=== PATIENT | female | born 1995 | race African-American/Black ===

== ENCOUNTER 2018-01-24 11:53 | Emergency (ER) | payer OTHER ==
[~2018-01-24] VITALS: Ht 160 cm; Wt 49.0 kg
[~2018-01-24 11:53] MED LIST: ALBU1.25 NEB; ALBU8.5H8 INH; FLUT1DIS3 IH; MONT10TA9 PO; PRED50TA PO
[2018-01-24 12:05] VITALS: BP 100/67
[2018-01-24] MEDS ORDERED: 0.9 % SODIUM CHLORIDE 10 ML DISP.SYRIN. IV PRN (12:15)
--- NOTE | 2018-01-24 12:28 | PHYS DOC ---
Past History Past Medical History: Asthma Past Surgical History: No Surgical History Smoking: Non-smoker Alcohol Use: Rarely Drug Use: None Adult General Chief Complaint Chief Complaint: left flank HPI HPI Patient is a [23] year old [female] who presents with left flank pain. Patient complaining of upper respiratory infection with nasal congestion, muffled voice , mild cough[] for the last 4 days treated with left flank and lower abdominal cramping pain that he continued every 5 minutes and gradually getting worse and did not get better with taking ibuprofen. Patient said the pain radiated from left flank and left lower quadrant and denies fever and chills, nausea and vomiting, urinary symptoms, diarrhea and constipation, history of the same pain , vaginal bleeding or discharge. Patient denies sexual activity was several months and states she had a sharp in September 2017 and her LMP was October 2017. Review of Systems Review of Systems Constitutional: Denies fever or chills [] Eyes: Denies change in visual acuity, redness, or eye pain [] HENT: Denies nasal congestion or sore throat [] Respiratory: Denies cough or shortness of breath [] Cardiovascular: No additional information not addressed in HPI [] GI: Denies abdominal pain, nausea, vomiting, bloody stools or diarrhea [] : Denies dysuria or hematuria [] Musculoskeletal: Denies back pain or joint pain [] Integument: Denies rash or skin lesions [] Neurologic: Denies headache, focal weakness or sensory changes [] Endocrine: Denies polyuria or polydipsia [] All other systems were reviewed and found to be within normal limits, except as documented in this note. Current Medications Current Medications Current Medications Medications (Trade) Dose Ordered Sig/Nolan Start Time Stop Time Status Last Admin Dose Admin Ketorolac Tromethamine (Toradol) 30 mg 1X ONCE 01/24/18 12:30 01/24/18 12:31 UNV Sodium Chloride (Normal Saline Flush) 10 ml QSHIFT PRN 01/24/18 12:15 Allergies Allergies Allergies Coded Allergies Type Severity Reaction Last Updated Verified No Known Drug Allergies 07/05/15 No Physical Exam Physical Exam Constitutional: Well developed, well nourished, no acute distress, non-toxic appearance. [] HENT: Normocephalic, atraumatic, bilateral external ears normal, oropharynx moist, no oral exudates, nose normal. [] Eyes: PERRLA, EOMI, conjunctiva normal, no discharge. [] Neck: Normal range of motion, no tenderness, supple, no stridor. [] Cardiovascular:Heart rate regular rhythm, no murmur [] Lungs & Thorax: Bilateral breath sounds clear to auscultation [] Abdomen: Bowel sounds normal, soft, no tenderness, no masses, no pulsatile masses. [] Skin: Warm, dry, no erythema, no rash. [] Back: No tenderness, no CVA tenderness. [] Extremities: No tenderness, no cyanosis, no clubbing, ROM intact, no edema. [] Neurologic: Alert and oriented X 3, normal motor function, normal sensory function, no focal deficits noted. [] Psychologic: Affect normal, judgement normal, mood normal. [] Current Patient Data Vital Signs Vital Signs Date Time Temp Pulse Resp B/P (MAP) Pulse Ox O2 Delivery O2 Flow Rate FiO2 01/24/18 12:05 98.5 95 18 99 Room Air Lab Results Laboratory Tests Test 01/24/18 11:29 POC Urine HCG, Qualitative hcg negative (Negative) EKG EKG [] Radiology/Procedures Radiology/Procedures [] Course & Med Decision Making Course & Med Decision Making Pertinent Labs reviewed. (See chart for details) discharge: I've spoken with the patient and/or caregivers. I've explained the patient's condition, diagnosis and treatment plan based on information available to me at this time. I've answered the patient's and/or caregivers questions and addressed any concerns. The patient and/or caregivers have a good understanding the patient's diagnosis, condition and treatment plan as can be expected at this point. Vital signs have been stabilized. The patient's condition is stable for discharge from the emergency department. The patient will pursue further outpatient evaluation with her primary care provider or other designated consulting physician as outlined in the discharge instructions. Patient and/or caregivers are agreeable to this plan of care and follow-up instructions have been explained in detail. The patient and/or caregivers have received these instructions in written format and expressed understanding of these discharge instructions. The patient and her caregivers are aware that if any significant change in condition or worsening of symptoms should prompt him to immediately return to this of the closest emergency department. If an emergent department is not readily available I would encourage him to call 911. [] Dragon Disclaimer Dragon Disclaimer This electronic medical record was generated, in whole or in part, using a voice recognition dictation system. Departure Departure: Impression: Primary Impression: UTI (urinary tract infection) Additional Impressions: Left flank pain Upper respiratory infection, viral Disposition: HOME, SELF-CARE (At 1341) Condition: IMPROVED Referrals: MARIA A REYNOLDS DO, [facility] (PCP) Patient Instructions: Flank Pain, Urinary Tract Infection Additional Instructions: Drink plenty of liquids Follow-up with your primary care physician in 3-5 days Return to ER if not getting better Scripts Sulfamethoxazole/Trimethoprim (BACTRIM DS TABLET) 1 Each Tablet 1 TAB PO BID, #6 TAB Prov: PIPPA SHAW MD 01/24/18 Naproxen (NAPROSYN) 500 Mg Tablet 1 TAB PO BID, #14 TAB 1 Refill Prov: PIPPA SHAW MD 01/24/18 Problem Qualifiers PIPPA SHAW MD Jan 24, 2018 12:28
[2018-01-24] MEDS ORDERED: IV NORMAL SALINE 1,000ML 1,000 ML IV SCH (12:30)
[2018-01-24] MEDS ORDERED: KETOROLAC 30 MG/ML VIAL. IV ONE (12:30)
[2018-01-24 12:47] LABS: BARBITURATES NEG (NEG); BENZODIAZEPINES NEG (NEG); CANNABINOIDS NEG (NEG); COCAINE NEG (NEG); METHADONE NEG (NEG); OPIATES NEG (NEG); PHENCYCLIDINE NEG (NEG)
[2018-01-24 12:48] LABS: AMPHETAMINE/METHAMPHETAMINE NEG (NEG)
[2018-01-24 12:51] LABS: BASO # 0.1 x10^3/uL (0.0-0.2); BASO % 1 % (0-3); EOS # 0.7 x10^3/uL (0.0-0.7); EOS % 7 % (0-3); HEMATOCRIT 40.8 % (36.0-47.0); HEMOGLOBIN 13.9 g/dL (12.0-15.5); LYMPH # 2.2 x10^3/uL (1.0-4.8); LYMPH % 24 % (24-48); MEAN CORPUSCULAR HEMOGLOBIN 33 pg (25-35); MEAN CORPUSCULAR HGB CONC 34 g/dL (31-37); MEAN CORPUSCULAR VOLUME 96 fL (79-100); MONO # 0.7 x10^3/uL (0.0-1.1); MONO % 8 % (0-9); NEUT # 5.6 x10^3uL (1.8-7.7); NEUT % 60 % (31-73); PLATELET COUNT 261 x10^3/uL (140-400); RED BLOOD COUNT 4.23 x10^6/uL (3.50-5.40); RED CELL DISTRIBUTION WIDTH 13.9 % (11.5-14.5); WHITE BLOOD COUNT 9.2 x10^3/uL (4.0-11.0)
[2018-01-24 13:07] LABS: ALBUMIN 4.2 g/dL (3.4-5.0); ALBUMIN/GLOBULIN RATIO 1.2 (1.0-1.7); CREATININE 0.9 mg/dL (0.6-1.0); GFR 94.7; POTASSIUM 4.1 mmol/L (3.5-5.1); TOTAL BILIRUBIN 0.5 mg/dL (0.2-1.0); TOTAL PROTEIN 7.6 g/dL (6.4-8.2)
[2018-01-24 13:21] LABS: BACTERIA,URINE MOD /HPF (0-FEW); BILIRUBIN,URINE NEG (NEG); CLARITY,URINE HAZY; COLOR,URINE YELLOW; GLUCOSE,URINE NEG (NEG); NITRITE,URINE NEG (NEG); UROBILINOGEN,URINE 1 mg/dL (0.2 mg/dL)
[2018-01-24 13:22] LABS: SQUAMOUS EPITHELIAL CELL,UR MOD /LPF
[2018-01-24] MEDS ORDERED: NAPR-683 PO (13:43)
[2018-01-24] MEDS ORDERED: SULF1TAB24 PO (13:43)
== END 2018-01-24 13:54 | disposition home or self-care (01) ==
LOC: ER 12:11
DX: N39.0 Urinary tract infection, site not specified (principal); J06.9 Acute upper respiratory infection, unspecified; B97.89 Other viral agents as the cause of diseases classified elsewhere; J45.909 Unspecified asthma, uncomplicated
CPT/HCPCS: 36415; 80053; 80307; 81001; 81025; 83690; 85025; 87086; 96361; 96374; 99284; J1885; G0479; J7030

== ENCOUNTER 2018-04-20 23:02 | Emergency (ER) | payer OTHER ==
[~2018-04-20 23:02] MED LIST changes: +NAPR-683 PO; +SULF1TAB24 PO
--- NOTE | 2018-04-20 23:05 | ED.ADGEN ---
Past History Past Medical History: Asthma, Migraines Past Surgical History: No Surgical History Smoking: Non-smoker Alcohol Use: Rarely Drug Use: None Adult General Chief Complaint Chief Complaint ".. I ve had this headache.. HPI HPI Patient is a 23 year old female who presents with above hx and complaints of headache for past 2 weeks. Pain is localized to forehead. Seems to be related to weather changes. Pt. has had migraines in the past but this one has been more persistent. Patient denies any trauma. 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 No recent travel. Patient up-to-date vaccinations. Follows at [facility]. Review of Systems Review of Systems Constitutional: Denies fever or chills [] Eyes: Denies change in visual acuity, redness, or eye pain [] HENT:,Complaints of nasal congestion Respiratory: Denies cough or shortness of breath [] Cardiovascular: No additional information not addressed in HPI [] GI: Denies abdominal pain, nausea, vomiting, bloody stools or diarrhea [] : Denies dysuria or hematuria [] Musculoskeletal: Denies back pain or joint pain [] Integument: Denies rash or skin lesions [] Neurologic: Complaints of headache. denies focal weakness or sensory changes [] Endocrine: Denies polyuria or polydipsia [] All other systems were reviewed and found to be within normal limits, except as documented in this note. Family History Family History Mother has migraines and hers have been persistent also last 2 weeks Current Medications Current Medications Current Medications Medications (Trade) Dose Ordered Sig/Nolan Start Time Stop Time Status Last Admin Dose Admin Cephalexin HCl (Keflex) 500 mg 1X ONCE 04/21/18 01:00 04/21/18 01:01 DC 04/21/18 01:00 500 MG Diphenhydramine HCl (Benadryl) 50 mg 1X ONCE 04/20/18 23:55 04/20/18 23:56 DC 04/21/18 00:16 50 MG Ketorolac Tromethamine (Toradol 30mg Vial) 30 mg 1X ONCE 04/21/18 01:00 04/21/18 01:01 DC 04/21/18 01:00 30 MG Lactated Ringer's 1,000 ml @ 1,000 mls/hr 1X ONCE 04/20/18 23:15 04/21/18 00:14 DC 04/21/18 00:18 1,000 MLS/HR Ondansetron HCl (Zofran) 8 mg 1X ONCE 04/20/18 23:55 04/20/18 23:56 DC 04/21/18 00:16 8 MG Prednisone (Prednisone) 50 mg 1X ONCE 04/21/18 01:00 04/21/18 01:01 DC 04/21/18 01:00 50 MG Sodium Chloride 50 ml @ As Directed STK-MED ONCE 04/20/18 23:55 04/20/18 23:56 DC Valproic Acid (Depacon) 500 mg STK-MED ONCE 04/20/18 23:56 04/20/18 23:57 DC Valproic Acid 500 mg/Sodium Chloride 55 ml @ 55 mls/hr ONCE ONCE 04/20/18 23:45 04/21/18 00:44 DC 04/21/18 00:15 55 MLS/HR See nursing for home meds Allergies Allergies Allergies Coded Allergies Type Severity Reaction Last Updated Verified No Known Drug Allergies 07/05/15 No Physical Exam Physical Exam Constitutional: Well developed, well nourished, moderately acute distress, non- toxic appearance. [] HENT: Normocephalic, atraumatic, bilateral external ears normal, oropharynx moist, no oral exudates, nose swollen turbinates and rhinorrhea. No temporal lobe tenderness. Eyes: PERRLA, EOMI, conjunctiva normal, no discharge. []No appreciable peripheral field vision loss. Fundus is benign Neck: Normal range of motion, no tenderness, supple, no stridor. [] Cardiovascular:Heart rate regular rhythm, no murmur [] Lungs & Thorax: Bilateral breath sounds clear to auscultation [] Abdomen: Bowel sounds normal, soft, no tenderness, no masses, no pulsatile masses. [] Skin: Warm, dry, no erythema, no rash. [] Back: No tenderness, no CVA tenderness. [] Extremities: No tenderness, no cyanosis, no clubbing, ROM intact, no edema. [] Neurologic: Alert and oriented X 3, normal motor function, normal sensory function, no focal deficits noted. []DTRs +2 patella and brachial. No drift. Reel Stripper equal. Psychologic: Affect anxious, judgement normal, mood normal. [] Current Patient Data Lab Results Laboratory Tests Test 04/20/18 22:39 04/20/18 23:20 POC Urine HCG, Qualitative hcg negative (Negative) White Blood Count 8.3 x10^3/uL (4.0-11.0) Red Blood Count 4.49 x10^6/uL (3.50-5.40) Hemoglobin 14.2 g/dL (12.0-15.5) Hematocrit 41.7 % (36.0-47.0) Mean Corpuscular Volume 93 fL (79-100) Mean Corpuscular Hemoglobin 32 pg (25-35) Mean Corpuscular Hemoglobin Concent 34 g/dL (31-37) Red Cell Distribution Width 12.8 % (11.5-14.5) Platelet Count 320 x10^3/uL (140-400) Neutrophils (%) (Auto) 62 % (31-73) Lymphocytes (%) (Auto) 29 % (24-48) Monocytes (%) (Auto) 6 % (0-9) Eosinophils (%) (Auto) 3 % (0-3) Basophils (%) (Auto) 0 % (0-3) Neutrophils # (Auto) 5.2 x10^3uL (1.8-7.7) Lymphocytes # (Auto) 2.4 x10^3/uL (1.0-4.8) Monocytes # (Auto) 0.5 x10^3/uL (0.0-1.1) Eosinophils # (Auto) 0.3 x10^3/uL (0.0-0.7) Basophils # (Auto) 0.0 x10^3/uL (0.0-0.2) Erythrocyte Sedimentation Rate 7 (0-25) Prothrombin Time 11.1 SEC (9.4-11.4) Prothrombin Time INR 1.1 (0.9-1.1) PTT 28 SEC (23-33) Urine Collection Type Unknown Urine Color Yellow Urine Clarity Clear Urine pH 6.0 Urine Specific [place] 1.025 Urine Protein Neg (NEG-TRACE) Urine Glucose (UA) Neg mg/dL (NEG) Urine Ketones (Stick) 15 mg/dL (NEG) Urine Blood Trace (NEG) Urine Nitrite Neg (NEG) Urine Bilirubin Neg (NEG) Urine Urobilinogen Dipstick 1 mg/dL (0.2 mg/dL) Urine Leukocyte Esterase Neg (NEG) Urine RBC Occ /HPF (0-2) Urine WBC Occ /HPF (0-4) Urine Squamous Epithelial Cells Occ /LPF Urine Bacteria 0 /HPF (0-FEW) Sodium Level 141 mmol/L (136-145) Potassium Level 3.5 mmol/L (3.5-5.1) Chloride Level 103 mmol/L (98-107) Carbon Dioxide Level 25 mmol/L (21-32) Anion Gap 13 (6-14) Blood Urea Nitrogen 9 mg/dL (7-20) Creatinine 1.0 mg/dL (0.6-1.0) Estimated GFR (Cockcroft-Gault) 83.9 Glucose Level 92 mg/dL (70-99) Calcium Level 10.1 mg/dL (8.5-10.1) Magnesium Level 1.8 mg/dL (1.8-2.4) Total Bilirubin 0.7 mg/dL (0.2-1.0) Direct Bilirubin 0.1 mg/dL (0.0-0.2) Aspartate Amino Transferase (AST) 15 U/L (15-37) Alanine Aminotransferase (ALT) 22 U/L (14-59) Alkaline Phosphatase 65 U/L (46-116) Total Protein 8.4 g/dL (6.4-8.2) H Albumin 4.4 g/dL (3.4-5.0) Urine Opiates Screen Neg (NEG) Urine Methadone Screen Neg (NEG) Urine Barbiturates Neg (NEG) Urine Phencyclidine Screen Neg (NEG) Urine Amphetamine/Methamphetamine Neg (NEG) Urine Benzodiazepines Screen Neg (NEG) Urine Cocaine Screen Neg (NEG) Urine Cannabinoids Screen Neg (NEG) Urine Ethyl Alcohol Neg (NEG) EKG EKG [] Radiology/Procedures Radiology/Procedures My interpretation of . CT of head and face show no shift, mass, edema, bleed, or fracture. Does have a right ethmoid cyst. Mild sinusitis. See formal report when available[] Course & Med Decision Making Course & Med Decision Making Pertinent Labs and Imaging studies reviewed. (See chart for details). Discussed options of further evaluation of patient after CT showed no acute findings other than ethmoid] retention cyst and mild sinusitis. Patient declined spinal tap at this time. Patient exhibits UCAR capacity and seems aware of risk and benefits. Use Flonase 2 sprays at night. Use normal saline rinses all times a day. Take Tylenol and ibuprofen for pain. For nausea take Zofran up to 4 times a day. At the start of migraine headaches take Imitrex 100 mg. Take no more than 200 mg 24 hours. Follow-up primary care. Consider follow-up with neurology. Return if any concerns. [] Final Impression Final Impression 1. Headache- Migraine[] 2. Ethmoid Sinuitis, right ethmoid cyst Dragon Disclaimer Dragon Disclaimer This electronic medical record was generated, in whole or in part, using a voice recognition dictation system. SANDOVAL GIBSON MD Apr 20, 2018 23:05
[2018-04-20] MEDS ORDERED: IV RINGERS SOLUTION,LACTATED 1,000 ML IV ONE (23:15)
[2018-04-20] MEDS ORDERED: VALPROATE SODIUM 500 MG in IV NORMAL SALINE 50ML 50 ML IV ONE (23:45)
[2018-04-20] MEDS ORDERED: IV NORMAL SALINE 50ML 50 ML ONE (23:55)
[2018-04-20] MEDS ORDERED: diphenhydrAMINE 50 MG/ML VIAL IVP ONE (23:55)
[2018-04-20] MEDS ORDERED: ONDANSETRON PF 4 MG/2 ML VIAL. IV ONE (23:55)
[2018-04-20 23:56] LABS: BASO % 0 % (0-3); EOS # 0.3 x10^3/uL (0.0-0.7); EOS % 3 % (0-3); HEMATOCRIT 41.7 % (36.0-47.0); HEMOGLOBIN 14.2 g/dL (12.0-15.5); LYMPH # 2.4 x10^3/uL (1.0-4.8); LYMPH % 29 % (24-48); MEAN CORPUSCULAR HEMOGLOBIN 32 pg (25-35); MEAN CORPUSCULAR HGB CONC 34 g/dL (31-37); MEAN CORPUSCULAR VOLUME 93 fL (79-100); MONO # 0.5 x10^3/uL (0.0-1.1); MONO % 6 % (0-9); NEUT # 5.2 x10^3uL (1.8-7.7); NEUT % 62 % (31-73); PLATELET COUNT 320 x10^3/uL (140-400); RED BLOOD COUNT 4.49 x10^6/uL (3.50-5.40); RED CELL DISTRIBUTION WIDTH 12.8 % (11.5-14.5); WHITE BLOOD COUNT 8.3 x10^3/uL (4.0-11.0)
[2018-04-20] MEDS ORDERED: VALPROATE SODIUM 500 MG/5 ML VIAL IV ONE (23:56)
[2018-04-21 00:03] LABS: BACTERIA,URINE 0 /HPF (0-FEW); BILIRUBIN,URINE NEG (NEG); CLARITY,URINE CLEAR; COLOR,URINE YELLOW; GLUCOSE,URINE NEG (NEG); NITRITE,URINE NEG (NEG); RBC,URINE OCC /HPF (0-2); SQUAMOUS EPITHELIAL CELL,UR OCC /LPF; UROBILINOGEN,URINE 1 mg/dL (0.2 mg/dL); WBC,URINE OCC /HPF (0-4)
[2018-04-21 00:13] LABS: BARBITURATES NEG (NEG); BENZODIAZEPINES NEG (NEG); CANNABINOIDS NEG (NEG); COCAINE NEG (NEG); METHADONE NEG (NEG); OPIATES NEG (NEG); PHENCYCLIDINE NEG (NEG)
[2018-04-21 00:14] LABS: AMPHETAMINE/METHAMPHETAMINE NEG (NEG)
[2018-04-21 00:16] LABS: ALBUMIN 4.4 g/dL (3.4-5.0); CALCIUM 10.1 mg/dL (8.5-10.1); DIRECT BILIRUBIN 0.1 mg/dL (0.0-0.2); GFR 83.9; MAGNESIUM 1.8 mg/dL (1.8-2.4); POTASSIUM 3.5 mmol/L (3.5-5.1); TOTAL BILIRUBIN 0.7 mg/dL (0.2-1.0); TOTAL PROTEIN 8.4 g/dL (6.4-8.2)
--- NOTE | 2018-04-21 00:33 | RAD ---
PQRS Compliance statement: One or more of the following individualized dose reduction techniques were utilized for this examination: 1. Automated exposure control. 2. Adjustment of the mA and/or kV according to patient size. 3. Use of iterative reconstruction technique. Indication:Severe headache, light sensitivity, sinus pain - constant 2 weeks. TECHNIQUE: CT head without IV contrast COMPARISON:None FINDINGS: No pathologic extra-axial or intra-axial fluid collection. The ventricles and basal cisterns are within normal limits. No acute intracranial bleed. No focal loss of méndez-white differentiation. No suspicious bony lesion. Paranasal sinuses and mastoid air cells are clear. Visualized orbits within normal limits. IMPRESSION: No acute intracranial process. If concern for acute ischemic stroke is high, please consider MRI brain. Indication:Severe headache, light sensitivity, sinus pain - constant 2 weeks. TECHNIQUE: CT of the maxillofacial bones without IV contrast multiplanar reformats. COMPARISON: None FINDINGS: No acute fracture or dislocation. There is partial opacification of the right anterior ethmoid air cell likely mucocele. Rest of the paranasal sinuses and mastoid air cells are clear. The lenses, globes, extraocular muscles and intraorbital fat are within normal limits. The mandible and temporomandibular joints are within normal limits. Visualized upper cervical spine is within normal limits. The facial soft tissues are within normal limits. IMPRESSION: Small mucocele in the right anterior ethmoid air cell . Electronically signed by: Kartik Quigley DO (04/21/2018 12:29 AM) [id number]
[2018-04-21] MEDS ORDERED: FLUT9.9S NS (00:50)
[2018-04-21] MEDS ORDERED: SODI75SP NS (00:50)
[2018-04-21] MEDS ORDERED: SUMA100T3 PO (00:50)
[2018-04-21] MEDS ORDERED: CEPH-264 PO (00:50)
[2018-04-21] MEDS ORDERED: HYDR-79 PO (00:50)
[2018-04-21] MEDS ORDERED: ONDA8TAB12 PO (00:50)
[2018-04-21 00:53] VITALS: BP 111/67
[2018-04-21] MEDS ORDERED: KETOROLAC 30 MG/ML VIAL. IV ONE (01:00)
[2018-04-21] MEDS ORDERED: CEPHALEXIN 250 MG CAPSULE PO ONE (01:00)
[2018-04-21] MEDS ORDERED: predniSONE 10 MG TABLET PO ONE (01:00)
[2018-04-21 01:02] LABS: SEDIMENTATION RATE 7 (0-25)
== END 2018-04-21 01:42 | disposition home or self-care (01) ==
LOC: ER 23:02
DX: G43.909 Migraine, unspecified, not intractable, without status migrainosus (principal); J34.1 Cyst and mucocele of nose and nasal sinus; J45.909 Unspecified asthma, uncomplicated
CPT/HCPCS: 36415; 70450; 70486; 80048; 80076; 80307; 81001; 81025; 83735; 85025; 85610; 85651; 85730; 96365; 96375; 99285; J1200; J1885; J2405; J3490; J7120; J7512; G0479